=== PATIENT | female | born 2000 | race Caucasian/White ===

== ENCOUNTER 2022-12-06 19:13 | Emergency (ER) | payer OTHER ==
[2022-12-06 19:31] VITALS: BP 135/93; PULSE 92; RESP 18; TEMP 97; BMI 20.3
[2022-12-06] MEDS ORDERED: ACETAMINOPHEN 325 MG TABLET (FP) PO ONE (20:38)
[2022-12-06] MEDS ORDERED: ACETAMINOPHEN 325 MG TABLET (FP) ONE (21:55)
== END 2022-12-06 22:05 | disposition home or self-care (01) ==
LOC: JER 19:13
DX: R42 Dizziness and giddiness (principal)
CPT/HCPCS: 82962; 93005; 93010; 99284-25